=== PATIENT | male | born 1995 | race Caucasian/White ===

== ENCOUNTER 2022-11-16 12:06 | Emergency (ER) | payer OTHER, SELFPAY ==
--- NOTE | ~2022-11-16 | XR_ITS ---
EXAMINATION: XR hand LT min 3V DATE: 11/16/2022 13:11 INDICATION: Left thumb distal laceration. TECHNIQUE: 3 views of left hand were obtained. COMPARISON: None. FINDINGS: Bone alignment is normal. No fracture. Joint spaces are well maintained. There is a lacerat ion of the thumb. IMPRESSION: 1. No fracture or radiopaque foreign body. Reviewed, dictated and finalized at location A. [employer]
[2022-11-16 12:23] VITALS: BP 161/108; PULSE 90; RESP 16; O2SAT 98
--- NOTE | 2022-11-16 14:46 | ED.GENADULT ---
HPI - General Adult General Chief complaint: Wound/Laceration <Dario Kessler PA-C - Last Filed: 11/16/22 18:57> Stated complaint: left thumb laceration <Dario Kessler PA-C - Last Filed: 11/16/22 18:57> Time Seen by Provider: 11/16/22 12:47 <Dario Kessler PA-C - Last Filed: 11/16/22 18:57> History of Present Illness HPI narrative: This is a 27-year-old male who comes to the ED with chief complaint of a skin laceration occurring just prior to arrival. 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 He subsequently suffered a flap injury to the left palmar thumb. Denies numbness or weakness. He does not feel any foreign bodies are in the thumb. Denies any significant pain at this time. Denies any further injury. <Dario Kessler PA-C - Last Filed: 11/16/22 18:57> Related Data Allergies/adverse reactions: Allergies Allergy/AdvReac Type Severity Reaction Status Date / Time No Known Allergies Allergy Verified 11/20/22 13:40 <Dario Kessler PA-C - Last Filed: 11/16/22 18:57> Review of Systems Review of Systems: CONSTITUTIONAL: Denies fever, chills, or sweats. SKIN: Skin laceration. denies rash or itching. MUSCULOSKELETAL: Denies back pain, joint pain, or myalgia. NEUROLOGIC: Denies headache, numbness, dizziness, or weakness. PSYCHIATRIC: Denies anxiety or depression. <Dario Kessler PA-C - Last Filed: 11/16/22 18:57> [facility] Past Medical History Medical History: Medical History (Updated 11/20/22 @ 14:05 by MICHELLE Diaz) Depressed <Dario Kessler PA-C - Last Filed: 11/16/22 18:57> Family History Family History: Family History (Updated 11/20/22 @ 13:44 by Maria R Agrawal MA) Father Hypertension Mother No problems noted. <Dario Kessler PA-C - Last Filed: 11/16/22 18:57> Social History Social History: Social History (Updated 11/20/22 @ 13:46 by Maria R Agrawal MA) Smoking status: Never smoker Alcohol intake: current Drinks per week: 4 Substance use: never Substance use type: does not use Lack of Transportation: No Lack of Food: Never True Current Housing: I Have Housing Concerned About Future Housing: No Difficulty Paying Gas/Electric Bills: No Difficulty Paying for Meds: No Currently Unemployed: No Education: Associate Degree Difficulty w/ Childcare or Family Care: No Living arrangements: alone Occupation/Education: occupation Gender identity (if verbalized by the patient): Male <Dario Kessler PA-C - Last Filed: 11/16/22 18:57> Exam Narrative: GENERAL: Well-appearing, well-nourished, and in no acute distress. HEAD: Normocephalic, atraumatic. EXTREMITIES: There is a 2-2.5 cm curved laceration to the palmar thumb that extends to the lateral thumb. There is no active bleeding. No nail involvement. Normal range of motion. No edema. No weakness. SKIN: Warm, dry, no rash. NEURO: Alert and oriented x3. No focal deficits. PSYCH: Normal mood and affect. <Dario Kessler PA-C - Last Filed: 11/16/22 18:57> Course VIBRATOR EQUIPMENT TESTER/PA Physician Supervision For this patient encounter, I reviewed the VIBRATOR EQUIPMENT TESTER or PA documentation, treatment plan, and medical decision making and I had [id number] time with this patient. I performed all aspects of the MDM as documented. 27 male presenting with thumb laceration while using a grinder mill operator. The laceration was repaired at bedside and tetanus was updated. Patient tolerated well without complications. Advise close PCP follow-up for wound checks. Appropriate supportive care discussed. Appropriate return precautions given. Discharged in stable condition. <Tamara Simmons MD - Last Filed: 11/20/22 14:41> Vital Signs Vital signs: Vital Signs Pulse Rate 90 11/16/22 12:23 Respiratory Rate 16 11/16/22 12:23 Blood Pressure 161/108 H 11/16/22 12:23 Pulse Oximetry 98 11/16/22 12:23 Oxygen Delivery Room Air
[2022-11-16 15:20] VITALS: PULSE 114; RESP 16; TEMP 37.3; O2SAT 97
== END 2022-11-16 15:20 | disposition home or self-care (01) ==
PROVIDERS: Emergency Provider Physician Assistant; PCP Family Medicine
DX: S61.012A Laceration without foreign body of left thumb without damage to nail, initial encounter (principal); W31.1XXA Contact with metalworking machines, initial encounter
CPT/HCPCS: 12001; 73130; 99283